=== PATIENT | female | born 1970 | race Caucasian/White ===

== ENCOUNTER 2017-07-24 06:57 | Day surgery (SDC) | payer OTHER ==
[~2017-07-24] VITALS: Ht 167.6 cm; Wt 58.1 kg
[~2017-07-24 06:57] MED LIST: CYMBALTA60 MG PO; FOLIC ACID1 MG PO; HUMIRA PEN INJ 40M; LEVOTHYROXINE50 MCG PO; METHOTREXA25 MG/1 M5 IM; NEURONTIN 300300 MG PO; TOPAMAX50 MG PO; VOLTAREN75 MG PO; XANAX0.5 MG PO; ZANAFLEX4 MG PO; ZOLOFT100 MG PO; ZYRTEC10 MG PO
[2017-07-24 07:34] VITALS: BP 111/77; Ht 167.6 cm; Wt 58.1 kg
[2017-07-24 07:40] LABS: HCG URINE NEGATIVE (NEGATIVE)
[2017-07-24 07:58] LABS: MCH 31.9 pg (26.0-34.0); MCHC 33.3 g/dL (31.0-37.0); MCV 95.8 fL (80.0-100.0); MEAN PLATELET VOLUME 9.2 fL (7.4-10.4); RBC 4.07 10x6/uL (4.00-5.40); RDW 14.2 % (11.5-14.5); WBC 3.6 10x3/uL (4.8-10.8)
--- NOTE | 2017-07-24 11:41 | NUR ---
THE PATIENT IS RESTING LEFT LATERAL AWAKENED BY VERBAL STIMULI WITHOUT COMPLAINTS
--- NOTE | 2017-07-24 13:23 | NUR ---
IV REMOVED INTACT. DISCHARGE INSTRUCTIONS AND RX GIVEN. STATES SHE HAS A LONG RIDE AND WOULD LIKE A DOSE OF LORTAB ELIXER PRIOR TO DISCHARGE FOR PAIN, ORDERS RECEIVED.
--- NOTE | 2017-08-30 13:13 | HP ---
PATIENT: SALAZAR TERRY MEDICAL RECORD: [id number] ACCOUNT: [id number] LOCATION:[facility] : 66 ADMISSION DATE: 07/24/17 HISTORY AND PHYSICAL EXAMINATION HISTORY OF PRESENT ILLNESS: Ms. Terry is a 46-year-old female. She has been having persistent problems with strep pharyngitis. Over the past couple of years, has been really severe, she went to the Emergency Room. She is being admitted for tonsillectomy. PAST MEDICAL HISTORY: Includes reactive airway disease, parathyroidism. PAST SURGICAL HISTORY: Includes breast augmentation, rhinoplasty and left thyroidectomy in 2015. ALLERGIES: TO CODEINE. PHYSICAL EXAMINATION: GENERAL: She is healthy-appearing. FACE: Normal, symmetric, no lesions. EYES: Sclerae and conjunctivae are normal. EARS: Canals and TMs are normal. NOSE: No mass, polyps or tonsils. ORAL CAVITY AND OROPHARYNX: She has large tonsils asymmetric with the right one being larger than the left, 3-4+. NECK: No masses. No adenopathy. CHEST: Clear. CARDIOVASCULAR: Regular rate and rhythm, no murmur. EXTREMITIES: Normal. IMPRESSION: Chronic tonsillitis. PLAN: Tonsillectomy. TRANSINT:[id number] Voice Confirmation ID: [id number] DOCUMENT ID: [id number] JUAN INTERIANO MD at 1313 CC: [id number] DICTATION DATE: 07/20/17 1412 MOTOR CARRIER INSPECTOR: 07/20/17 1532 [facility] 07/24/[address] [address]
--- NOTE | 2017-08-30 13:13 | OP ---
PATIENT NAME: SALAZAR TERRY MEDICAL RECORD: [id number] :66 LOCATION:[facility] ADMISSION DATE: SURGEON: JUAN ALVARENGA MD DATE OF OPERATION: 07/24/2017 PREOPERATIVE DIAGNOSIS: Chronic tonsillitis. POSTOPERATIVE DIAGNOSIS: Chronic tonsillitis. PROCEDURE: Tonsillectomy. SURGEON: Juan Alvarenga MD ANESTHESIA: General orotracheal. BLOOD LOSS: Less than 20 cc. SPECIMENS: Right and left tonsil. COMPLICATIONS: None. DISPOSITION: Recovery stable. DESCRIPTION OF PROCEDURE: She was brought to the operating room and placed in supine position, sedated and intubated by anesthesia. The eyes were taped. The table was turned 90 degrees. Head drapes applied and she was positioned for tonsillectomy. Using a headlight, a Syed-Hector mouth gag was carefully inserted and elevated on a towel on her chest. The palate was examined and palpated as normal. The palate was retracted. A mirror was used to examine the nasopharynx. There was really no significant adenoid tissue. The choanae and eustachian tube orifices were normal bilaterally. The right tonsil was grasped at the superior pole with a straight Allis clamp. Spatula tip cautery on a setting of 9 was used to dissect out the tonsil along its capsule, preserving the anterior and posterior tonsillar pillar. The left tonsil was removed in the same fashion. There appeared to be possibly an old abscess at the left superior pole with a lot of fibrosis and scarring there. The tonsil was removed. Then, both sides of the nose were irrigated with saline. The pharynx was suctioned. Tonsillar fossae were agitated with Yankauer suction and then suction cautery on a setting of 20 was used to control oozing. With the field completely clean and dry, the Syed-Hector mouth gag was let down and removed. She was awakened, extubated, and transported to recovery in good condition. No complications. TRANSINT:[id number] Voice Confirmation ID: [id number] DOCUMENT ID: [id number] JUAN ALVARENGA MD at 1313 CC: [id number] DICTATION DATE: 07/24/17 1111 COMMERCIAL ACCOUNT EXECUTIVE: 07/24/17 1130 [facility] 07/24/17 [facility] [address] [place] [address]
== END 2017-07-24 13:40 | disposition home or self-care (01) ==
LOC: D.OPS 06:57 → D.PAN 10:15 → D.OPS 10:15
PROVIDERS: Anesthesiology; Otolaryngology
DX: J35.01 Chronic tonsillitis (principal); Z01.812 Encounter for preprocedural laboratory examination